=== PATIENT | female | born 1965 | race Caucasian/White ===

== ENCOUNTER 2020-12-13 10:11 | Outpatient (CLI) | payer OTHER ==
[~2020-12-13 10:11] MED LIST: BENADRYL50 MG PO
== END 2020-12-13 13:32 | disposition home or self-care (01) ==
LOC: OFIC 805 10:11
PROVIDERS: ATTEND Otolaryngology Otology & Neurotology
DX: F41.8 Other specified anxiety disorders (principal); G44.89 Other headache syndrome

== ENCOUNTER → 2021-08-11 | Outpatient (CLI) | payer OTHER | END | disposition home or self-care (01) | LOC: PPH VACUNA 07:00 | PROVIDERS: ATTEND Emergency Medicine Pediatric Emergency Medicine | DX: Z23 Encounter for immunization (principal) ==